=== PATIENT | male | born 1955 | race Caucasian/White ===

== ENCOUNTER 2020-06-18 09:17 | Emergency (ER) | payer OTHER ==
[2020-06-18 10:22] LABS: #Basophils 0.1 thou/uL (0.0-0.2); #Eosinphils 0.1 thou/uL (0.0-0.7); #Lymphocytes 1.4 thou/uL (1.20-3.40); #Monocytes 0.4 thou/uL (0.11-0.59); #Neutrophils 3.2 thou/uL (1.40-6.50); %Basophils 1.3 % (0.0-1.0); %Eosinophils 2.6 % (0.0-10.0); %Lymphocytes 26.8 % (21.0-51.0); %Monocytes 8.5 % (0.0-10.0); %Neutrophils 60.8 % (42.0-75.0); Hemoglobin 12.2 g/dL (14.0-18.0); Mean Corpuscular HGB CONC 33.4 g/dL (32.0-36.0); Mean Corpuscular Hemoglobin 30.7 pg (27.0-31.0); Mean Corpuscular Volume 91.9 fL (78.0-98.0); Mean Platelet Volume 7.8 fL (7.4-10.4); Platelet Count 190 thou/uL (130-400); RBC Distribution Width 12.4 % (11.5-14.5); Red Blood Cell (RBC) Count 3.98 mill/uL (4.70-6.10); White Blood Cell (WBC) Count 5.2 thou/uL (4.8-10.8)
[2020-06-18 10:48] LABS: ALT (SGPT) 9 U/L (8-55); AST (SGOT) 13 U/L (5-34); Albumin 3.7 g/dL (3.4-4.8); Alkaline Phosphatase 109 U/L (40-110); Anion Gap 9 mmol/L (10-20); BUN (Urea Nitrogen) 9 mg/dL (8.4-25.7); Bilirubin, Total 0.3 mg/dL (0.2-1.2); CK (CPK) 66 U/L (30-200); Calc. Creatinine Clearance 0 mL/min (70-130); Calcium 8.5 mg/dL (7.8-10.44); Carbon Dioxide 27 mmol/L (23-31); Chloride 108 mmol/L (98-107); Estimated GFR-MDRD Greater than 90; Globulin 2.6 g/dL (2.4-3.5); Glucose 94 mg/dL (80-115); Lipase 49 U/L (8-78); Potassium 4.2 mmol/L (3.5-5.1); Protein, Total 6.3 g/dL (5.8-8.1); Sodium 140 mmol/L (136-145)
--- NOTE | 2020-06-18 11:19 | RAD ---
PORTABLE CHEST 1 VIEW: Date: 06/18/2020 Time: 1026 hours HISTORY: Chest pain, shortness of breath, palpitations. FINDINGS: There are no previous exams for comparison. There are changes of median sternotomy. The heart size is normal. The lungs are well expanded without lobar consolidation, pneumothoraces, or pleural effusions. IMPRESSION: No radiographic evidence of acute cardiopulmonary process. POS: AH
--- NOTE | 2020-06-18 12:54 | CT ---
CT ANGIOGRAM THORAX WITH CONTRAST: (CTA pulmonary angiogram) DATE: 06/18/2020 HISTORY: 64-year-old male with chest pain, dyspnea, and palpitations. TECHNIQUE: IV injection of iodinated contrast. Scan acquisition timing attempted to coincide with iodinated contrast bolus reaching maximal density in pulmonary arteries. 3-D MIP reconstructions. FINDINGS: Mild pulmonary scars and/or subsegmental atelectasis at right middle lobe, lingula, and anterior port ion of anterior segment of left upper lobe. No infiltrates, pleural effusion, pneumothorax, or high-grade COPD. No thoracic aortic aneurysm or dissection. No cardiomegaly or pericardial effusion. Calcified granulomata in the lower mediastinum and right hilum. Numerous tiny calcified granulomata in the liver, and especially in the spleen. No thrombus in pulmonary arteries centrally or in peripheral branches. Good contrast opacification of pulmonary arteries. No active mediastinal or hilar lymphadenopathy. Sternotomy wires. IMPRESSION: 1) no pulmonary thromboembolism. 2) no active intrathoracic disease. 3) old, inactive granulomatous disease. 4) previous open-heart surgery.
[2020-06-18 13:21] LABS: Troponin I Less than 0.010 ng/mL (< 0.028)
== END 2020-06-18 13:49 ==
LOC: ERS 09:17 → EEVIPCON 09:17 → ERS 13:49
DX: R07.89 Other chest pain (principal); I10 Essential (primary) hypertension; E78.5 Hyperlipidemia, unspecified; I25.10 Atherosclerotic heart disease of native coronary artery without angina pectoris; Z86.19 Personal history of other infectious and parasitic diseases; Z95.1 Presence of aortocoronary bypass graft; F32.9 Major depressive disorder, single episode, unspecified; Z79.82 Long term (current) use of aspirin; Z79.899 Other long term (current) drug therapy
CPT/HCPCS: 36415; 71045; 71275; 80053; 82550; 83690; 83880; 84484; 85025; 85379; 93005

== ENCOUNTER 2020-06-28 14:23 | Emergency (ER) | payer OTHER ==
[~2020-06-28 14:23] MED LIST: Iopamidol-370 76% 500 ML 1 ML ONE
--- NOTE | 2020-06-28 15:09 | RAD ---
Exam: Chest one view HISTORY:Chest pain Comparison: 06/18/2020 FINDINGS: Cardiac silhouette:Normal cardiac silhouette. Stable sternotomy wires. Aorta: Unremarkable Pulmonary vessels: Normal Costophrenic angles: Clear LUNGS: No masses or consolidation. Pneumothorax: None Osseous abnormalities: None IMPRESSION: No acute cardiopulmonary process.
[2020-06-28] MEDS ORDERED: Ketorolac Tromethamine 30 MG/ML VIAL ONE (15:26)
--- NOTE | 2020-06-28 15:28 | CT ---
CT Abdomen Pelvis W Con: 06/28/2020 3:00 PM CLINICAL INFORMATION: Liver quadrant abdominal pain after fall COMPARISON: None. TECHNIQUE: Multiple contiguous axial images were obtained and a CT of the abdomen and pelvis with IV contrast. Oral contrast was administered. Coronal and sagittal reformats were performed. FINDINGS: Lower Chest: within normal limits. Abdomen: Liver: Scattered calcified granulomas Bile Ducts: Normal caliber. Gallbladder: No calcified gallstones. Normal caliber wall. Pancreas: within normal limits. Spleen: Scattered calcified granulomas. No splenic laceration is seen. Adrenals: within normal limits. Kidneys: within normal limits. Pelvis: Reproductive Organs: No pelvic masses. Ureters: within normal limits. Bladder: within normal limits. Peritoneum: No ascites or free air, no fluid collection. Bowel: Normal caliber. Mesentery and Retroperitoneum: No enlarged mesenteric or retroperitoneal lymph nodes. Vessels: Atherosclerotic calcifications. Abdominal Wall: within normal limits. Bones: Postsurgical changes are seen in the lumbar spine. IMPRESSION: No evidence of acute intraabdominal or pelvic abnormality.
[2020-06-28 16:00] LABS: #Basophils 0.1 thou/uL (0.0-0.2); #Eosinphils 0.1 thou/uL (0.0-0.7); #Lymphocytes 1.7 thou/uL (1.20-3.40); #Monocytes 0.7 thou/uL (0.11-0.59); #Neutrophils 6.8 thou/uL (1.40-6.50); %Basophils 0.6 % (0.0-1.0); %Eosinophils 1.6 % (0.0-10.0); %Lymphocytes 18.5 % (21.0-51.0); %Monocytes 7.6 % (0.0-10.0); %Neutrophils 71.8 % (42.0-75.0); Hemoglobin 12.5 g/dL (14.0-18.0); Mean Corpuscular HGB CONC 34.2 g/dL (32.0-36.0); Mean Corpuscular Hemoglobin 30.9 pg (27.0-31.0); Mean Corpuscular Volume 90.3 fL (78.0-98.0); Mean Platelet Volume 7.5 fL (7.4-10.4); Platelet Count 230 thou/uL (130-400); RBC Distribution Width 12.5 % (11.5-14.5); Red Blood Cell (RBC) Count 4.04 mill/uL (4.70-6.10); White Blood Cell (WBC) Count 9.4 thou/uL (4.8-10.8)
[2020-06-28 16:23] LABS: ALT (SGPT) 23 U/L (8-55); AST (SGOT) 22 U/L (5-34); Albumin 3.9 g/dL (3.4-4.8); Alkaline Phosphatase 102 U/L (40-110); Anion Gap 10 mmol/L (10-20); BUN (Urea Nitrogen) 15 mg/dL (8.4-25.7); Bilirubin, Total 0.3 mg/dL (0.2-1.2); Calc. Creatinine Clearance 0 mL/min (70-130); Calcium 8.7 mg/dL (7.8-10.44); Carbon Dioxide 25 mmol/L (23-31); Chloride 104 mmol/L (98-107); Estimated GFR-MDRD Greater than 90; Globulin 3.2 g/dL (2.4-3.5); Glucose 88 mg/dL (80-115); Potassium 4.4 mmol/L (3.5-5.1); Protein, Total 7.1 g/dL (5.8-8.1); Sodium 135 mmol/L (136-145)
== END 2020-06-28 17:23 ==
LOC: ERS 14:23 → EEVIPCON 14:23 → ERS 17:23
DX: S20.212A Contusion of left front wall of thorax, initial encounter (principal); R03.0 Elevated blood-pressure reading, without diagnosis of hypertension; E78.5 Hyperlipidemia, unspecified; I25.10 Atherosclerotic heart disease of native coronary artery without angina pectoris; I10 Essential (primary) hypertension; I25.2 Old myocardial infarction; F32.9 Major depressive disorder, single episode, unspecified; Z79.82 Long term (current) use of aspirin; Z79.899 Other long term (current) drug therapy; W18.30XA Fall on same level, unspecified, initial encounter
CPT/HCPCS: 36415; 71045; 74177; 80053; 84484; 85025; 93005; 96374; J1885; Q9967